=== PATIENT | male | born 1940 ===

== ENCOUNTER 2018-03-18 10:25 | Inpatient (IN) | payer MEDICARE, OTHER ==
--- NOTE | 2018-03-11 11:14 | HP ---
HISTORY AND PHYSICAL: DATE OF ADMISSION/SURGERY: 03/18/18 SURGEON: Diana Cardoza MD.* (DICTATED BY EMILY STEPHENS) PROCEDURE: Left total hip arthroplasty. CHIEF COMPLAINT: Left hip pain. HISTORY OF PRESENT ILLNESS: Mr. Mcgraw is a 78-year-old gentleman with complaints of left hip pain secondary to end-stage osteoarthritis. He has failed conservative treatment and elected to proceed with a left total hip arthroplasty. PAST MEDICAL HISTORY: Hypertension, diabetes, high cholesterol. PAST SURGICAL HISTORY: Cholecystectomy, right eye lens replacement, and a cyst removal. CURRENT MEDICATIONS: 1. Lantus. 2. Lisinopril 40 mg daily. 3. Simvastatin 80 mg daily. 4. Glucosamine. 5. Terazosin 5 mg daily. 6. Triamterene/hydrochlorothiazide 37.5/25 mg daily. 7. Baby aspirin daily. ALLERGIES: PENICILLIN. FAMILY HISTORY: Colon cancer, coronary artery disease, stroke and brain aneurysm. SOCIAL HISTORY: This is a 78-year-old gentleman who lives with his . He does not smoke or use drugs. Reports approximately 3 beers a day. REVIEW OF SYSTEMS: A complete 14-point review of systems was reviewed with the patient and was positive for diabetes. He denies history of DVT, PE, hepatitis , HIV, or anesthesia problems. PHYSICAL EXAMINATION GENERAL: He is well developed, well nourished in no acute distress. VITAL SIGNS: He stands 5 feet 11 inches tall, weighs 241 pounds. Blood pressure is 162/86, heart rate 68. HEENT: Normocephalic, atraumatic. NECK: Supple. No palpable lymph nodes. PULMONARY: Lungs are clear to auscultation bilaterally. CARDIO: Regular rate and rhythm. Strong S1, S2. ABDOMEN: Soft, nontender, nondistended. NEUROLOGICAL: He is alert and oriented x3. Cranial nerves II through XII are intact. MUSCULOSKELETAL: Left lower extremity, the skin is intact. There are no open wounds or abrasions. He walks with an antalgic type gait favoring his left hip. He has decreased internal and external rotation of the left hip. He has 2 + dorsalis pedis pulses, intact sensation and his lower extremity muscle group strengths are intact at 5/5. ASSESSMENT AND PLAN: Mr. Mcgraw is a 78-year-old gentleman with continued complaints of left hip pain secondary to end-stage osteoarthritis. He has failed conservative treatment and elected to proceed with a left total hip arthroplasty, which is scheduled for 03/18/[address] Cardoza discussed the risks and the benefits of the surgery at today's visit and all of his questions were answered. He will follow up with Dr. Cardoza 2 weeks after the surgery. EMILY STEPHENS [id number]/[facility] #: [id number] MTDD
[~2018-03-18 10:25] MED LIST: Buffered Lidocaine 0.9% SYRIN* 5 ML/SYR SYRINGE INTRADERM ONE; DiMENhydriNATE IV* 50 MG/ML VIAL IV PUSH PRN; Famotidine IV* 10 MG/ML 2 ML (20 mg) IV ONE; Gabapentin CAP(*) 300 MG PO ONE; Morphine INJ* 2 MG/ML 1 ML CARPUJECT IV PRN; Naloxone* 0.4 MG/ML 1 ML VIAL IV PRN; Ondansetron TAB* 4 MG PO ONE; PROCHLORPERAZINE INJ 5 MG/ML 2 ML VIAL IV PRN; Scopolamine 1.5 mg* PATCH TRANSDERM ONE; fentaNYL* 50 MCG/ML 2 ML VIAL (100 MCG VIAL) IV PRN
[2018-03-18] MEDS ORDERED: Gabapentin CAP(*) 100 MG ONE (10:43)
[2018-03-18] MEDS ORDERED: Ondansetron ODT TAB* 4 MG ONE (10:44)
[2018-03-18] MEDS ORDERED: Famotidine IV* 10 MG/ML 2 ML (20 mg) ONE (10:44)
[2018-03-18] MEDS ORDERED: Scopolamine 1.5 mg* PATCH ONE (10:44)
[2018-03-18] MEDS ORDERED: Gabapentin CAP(*) 400 MG PO ONE (10:44)
[2018-03-18] MEDS ORDERED: Clindamycin 900 MG IVPREMIX(* 900 MG/50 ML SDV IV ONE (10:45)
[2018-03-18] MEDS ORDERED: Buffered Lidocaine 0.9% SYRIN* 5 ML/SYR SYRINGE ONE (10:47)
[2018-03-18] MEDS ORDERED: Gabapentin CAP(*) 300 MG ONE (11:13)
[2018-03-18] MEDS ORDERED: KETAMINE HCL* 50 MG/ML 10 ML VIAL ONE (12:32)
[2018-03-18] MEDS ORDERED: Midazolam* 1 MG/ML 5 ML VIAL (5 MG) ONE (12:32)
[2018-03-18] MEDS ORDERED: fentaNYL* 50 MCG/ML 2 ML VIAL (100 MCG VIAL) ONE (12:32)
[2018-03-18] MEDS ORDERED: diPHENhydraMINE IV* 50 MG/ML 1 ml VIAL (BENADRYL) IV PRN (15:49)
[2018-03-18] MEDS ORDERED: oxyCODONE TAB* 5 MG TAB PO PRN (15:49)
[2018-03-18] MEDS ORDERED: Ondansetron INJ* 2 MG/ML VIAL IV PRN (15:49)
[2018-03-18] MEDS ORDERED: Cyclobenzaprine TAB* 10 MG PO PRN (15:49)
[2018-03-18] MEDS ORDERED: Ondansetron ODT TAB* 4 MG PO PRN (15:49)
[2018-03-18] MEDS ORDERED: Polyethylene Glycol 3350* 17 GM PACKET PO PRN (15:49)
[2018-03-18] MEDS ORDERED: Bisacodyl SUPP* 10 MG SUPP PR PRN (15:49)
[2018-03-18] MEDS ORDERED: Magnesium Hydroxide LIQ* 30 ML UDC PO PRN (15:49)
[2018-03-18] MEDS ORDERED: Acetaminophen TAB* 325 MG PO PRN (15:49)
[2018-03-18] MEDS ORDERED: Morphine VIAL* 4 MG/ML VIAL (1 ml vial) IV PRN (15:49)
[2018-03-18] MEDS ORDERED: Insulin GLARGINE(*) 1 UNITS UNIT SUBCUT SCH ×2 (16:00→21:00)
[2018-03-18] MEDS ORDERED: Insulin ASPART (NF) 1 UNIT SUBCUT SCH ×3 (16:00)
[2018-03-18] MEDS ORDERED: Phenylephrine INJ* 10 MG/ML 1 ML VIAL (10 MG) ONE (16:22)
[2018-03-18] MEDS ORDERED: Propofol* 10 MG/ML 20 ML BTL IV PUSH ONE (16:22)
[2018-03-18] MEDS ORDERED: ROPIVACAINE 5 MG/ML 30 ML BTL (0.5%) ONE (16:22)
[2018-03-18] MEDS ORDERED: EPHEDrine (Pressors)* 50 MG/ML VIAL ONE (16:22)
[2018-03-18] MEDS ORDERED: Glycopyrrolate IV* 0.2 MG/ML 1 ML VIAL ONE (16:22)
[2018-03-18] MEDS ORDERED: Bupivacaine 0.5% PF 10 ML VIAL INJ ONE (16:22)
--- NOTE | 2018-03-18 16:55 | RAD ---
Indication: Left hip replacement. Single view of the left hip taken in the operating room demonstrates acetabular cup and left femoral reamer in place. IMPRESSION: Intraoperative control films obtained for left hip replacement.
[2018-03-18] MEDS ORDERED: Warfarin TAB(*) 6 MG PO ONE ×2 (17:00→20:00)
[2018-03-18] MEDS ORDERED: Dextrose 50% Syringe 50 ML* 25 GM/50 ML SYRINGE IV PUSH PRN (17:40)
--- NOTE | 2018-03-18 17:58 | RAD ---
Indication: Left total hip replacement 2 views of left hip demonstrates bipolar left hip replacement in satisfactory position. Femoral component appears to be well seated. IMPRESSION: Left hip replacement appears in satisfactory position.
--- NOTE | 2018-03-18 17:59 | RAD ---
Indication: Left hip arthroplasty. Single view of the pelvis demonstrates left hip arthroplasty in satisfactory position. No fracture is identified. Degenerative changes of the sacroiliac joints are noted. IMPRESSION: Left total hip arthroplasty in satisfactory position.
[2018-03-18] MEDS ORDERED: oxyCODONE/Acetamin 5/325 MG* TAB ONE ×2 (18:22→18:41)
[2018-03-18] MEDS: oxyCODONE/Acetamin 5/325 MG* TAB PO PRN ×3 (18:26→22:41)
--- NOTE | 2018-03-18 19:06 | CONS ---
Amended report to enter date of consultation. CONSULTATION REPORT: DATE OF CONSULT: 03/18/2018. PRIMARY CARE PROVIDER: Zohaib Holden DO, at the [facility]. REQUESTING PHYSICIAN: Dr. Diana Cardoza. REASON FOR CONSULT: Medical management of comorbidities in the postop period. HISTORY OF PRESENT ILLNESS: Mr. Mcgraw is a 78-year-old male with a past medical history of type 2 diabetes with diabetic retinopathy, hypertension, obesity, degenerative joint disease, who presented for an elective left total hip replacement. The patient was optimized prior to surgery by his primary care provider, and he underwent left total hip arthroplasty under spinal anesthesia with estimated blood loss of [address] Cardoza on 03/18/18. The patient was evaluated at PACU and he is alert and awake with no complaints of pain at this time. He denies chest pain, palpitations, shortness of breath, nausea, vomiting or other complaints. PAST MEDICAL HISTORY: 1. Type 2 diabetes with history of diabetic retinopathy. 2. Hypertension. 3. Obesity with a BMI of 33. 4. Degenerative joint disease. PAST SURGICAL HISTORY: 1. Status post cholecystectomy. 2. Status post cataract surgery of the right eye only. MEDICATION LIST: 1. Aspirin 81 mg p.o. at bedtime. 2. Glucosamine/chondroitin 1 capsule p.o. b.i.d. 3. Ibuprofen 400 mg p.o. q.8 hours as needed for pain. 4. Lantus 30 units subcutaneously daily. 5. Insulin aspart 6 units subcutaneously at breakfast, 10 units lunch and dinner. 6. Lisinopril 40 mg p.o. q.a.m. 7. Simvastatin 80 mg p.o. 5 p.m. 8. Terazosin 5 mg p.o. at bedtime. 9. Triamterene/hydrochlorothiazide 37.5/25 mg p.o. q.a.m. ALLERGIES: With PENICILLIN, the patient has diarrhea. FAMILY HISTORY: Brother had CAD, CVA, colon cancer; other brother had the heart valve problem and a brain tumor. SOCIAL HISTORY: No history of tobacco or drug use. He drinks 3 beers a day. Surrogate decision maker is his , Kathleen Mcgraw, phone number [phone]. REVIEW OF SYSTEMS: A 14-point review systems was performed and all the pertinent negative and positive findings are in the HPI. PHYSICAL EXAMINATION: Vital Signs: Temperature 97.5, heart rate is 77, respiratory rate is 20, oxygen saturation is 96% on 4 liters nasal cannula, blood pressure is 139/70. General: The patient is an obese male, lying in bed , in no acute distress. HEENT: Pupils are anisocoric with right pupil irregularities secondary to prior surgery. Moist mucous membranes. CVS: Normal S1, S2. Regular rate and rhythm. Chest: Breath sounds present bilaterally with no added sounds. Abdomen is obese. Bowel sounds present. Neuro: He is alert and oriented x3. Able to move all 4 extremities. ASSESSMENT AND PLAN: Mr. Mcgraw is a 78-year-old male with a past medical history of obesity, diabetes, hypertension, who was admitted for an elective left total hip replacement. 1. Left total hip replacement. Management as per Ortho. 2. Type 2 diabetes. We are going to monitor his fingersticks a.c. and h.s. and we will continue his Lantus, but at a lower dose for now and he will be on a lispro sliding scale initially. If his oral intake is good, then I will put him back on his usual regimen, but I will try to avoid hypoglycemia for tonight as his glucose was only 115. 3. Hypertension. The patient's blood pressure is controlled at this time. We will continue his lisinopril, triamterene/hydrochlorothiazide and terazosin. 4. Hyperlipidemia. We will continue simvastatin. 5. DVT prophylaxis will be with Lovenox and warfarin as per Orthopedics recommendations. 6. Code status is full. The hospitalist service will continue to follow with you. TIME SPENT: Approximately 45 minutes was spent with the patient's interview, medical records review, physical examination to complete this consultation, more than half of this time was spent [id number] with the patient and coordination of care. [id number]/[facility] #: [id number] JOSÉ ANTONIO
[2018-03-18] MEDS: Atorvastatin* 40 MG TAB PO SCH (19:47)
[2018-03-18] MEDS ORDERED: Terazosin CAP* 5 MG PO SCH (21:00)
[2018-03-18] MEDS ORDERED: Insulin LISPRO* 1 UNITS UNIT SUBCUT SCH (21:00)
[2018-03-18] MEDS: Docusate CAP* 100 MG PO SCH (21:04)
[2018-03-18] MEDS: Magnesium Hydroxide LIQ* 30 ML UDC PO SCH (21:09)
[2018-03-18] MEDS: Clindamycin 600 MG IVPREMIX(* 600 MG/50 ML SDV IV SCH (22:42)
[2018-03-19] MEDS: oxyCODONE/Acetamin 5/325 MG* TAB PO PRN ×4 (04:17→19:19)
[2018-03-19 06:14] LABS: Hematocrit 34 % (42-52); Hemoglobin 11.5 g/dl (14.0-18.0); Mean Platelet Volume 8.1 um3 (7.4-10.4); Platelet Count 198 10^3/ul (150-450)
[2018-03-19] MEDS: Clindamycin 600 MG IVPREMIX(* 600 MG/50 ML SDV IV SCH ×2 (06:16→14:57)
[2018-03-19 06:22] LABS: INR 1.05 (0.77-1.02)
[2018-03-19 06:33] LABS: EGFR Non-African American 72.9 (>60)
[2018-03-19] MEDS ORDERED: Dextrose 50% Syringe 50 ML* 25 GM/50 ML SYRINGE IV PUSH PRN (07:26)
[2018-03-19] MEDS: Insulin LISPRO* 1 UNITS UNIT SUBCUT SCH ×7 (08:45→22:13)
[2018-03-19] MEDS: Docusate CAP* 100 MG PO SCH ×2 (08:47→19:19)
[2018-03-19] MEDS: Magnesium Hydroxide LIQ* 30 ML UDC PO SCH ×2 (08:47→19:19)
[2018-03-19] MEDS: Lisinopril TAB* 10 MG PO SCH (08:48)
[2018-03-19] MEDS: Triamterene/HCTZ 37.5-25 MG* CAP PO SCH (08:49)
[2018-03-19] MEDS: Terazosin CAP* 5 MG PO SCH (08:51)
--- NOTE | 2018-03-19 09:28 | OP ---
OPERATIVE REPORT: DATE OF OPERATION: 03/18/18 DATE OF : 38 SURGEON: Diana Cardoza MD IT SUPPORT ENGINEER: EMILY Barboza Kamidestini did help throughout the procedure with preparation of the leg, wound retraction, manipulat ion of the hip and wound closure. ANESTHESIOLOGIST: Dr. Sandra. ANESTHESIA: Spinal. PRE-OP DIAGNOSIS: Severe end-stage degenerative osteoarthritis of the left hip joint. POST-OP DIAGNOSIS: Severe end-stage degenerative osteoarthritis of the left hip joint. OPERATIVE PROCEDURE: Left total hip arthroplasty. COMPLICATIONS: None. ESTIMATED BLOOD LOSS: 300 cc. SPECIMEN: Femoral head and acetabular reaming sent to pathology. HARDWARE: This is uncemented [employer] total hip hardware. For the cup, a 56E Tritanium cluster hole shell, a 25 mm screw was used. For the polyethylene, a Trident X3 0-degree polyethylene insert 40E. For the stem, an Accolade TMZF size 4.5 with a 132-degree neck angle. For the head, a Biolox delta ceramic V40 femoral head size 40 with a -2.5 adaptor sleeve. BRIEF HISTORY/INDICATIONS: Mr. Mcgraw is a 78-year-old gentleman with severe left hip pain over ma ny years. The pain became excruciating and he had difficulty ambulating. He failed conservative maureen atment with antiinflammatories, pain medication, and ambulatory assistive devices. He elected to und ergo a left total hip arthroplasty due to continued pain and decreased quality of life. Radiographs showed [id number] arthritis. Informed consent was obtained from the patient. He understood the ri sks of surgery included but were not limited to bleeding, infection, damage to nearby structures, con tinued pain, need for further surgery, intraoperative fracture, nerve palsy, hardware failure or loos ening, dislocation, leg length discrepancies, stroke, heart attack, blood clot and . He wished to proceed. INTRAOPERATIVE FINDINGS: Intraoperatively, the patient was noted to have end-stage disease with comp lete loss of cartilage along the acetabulum and femoral head. DESCRIPTION OF PROCEDURE: Mr. Mcgraw was identified in the preanesthesia unit. His left lower extr emity was marked as the correct operative site. Informed consent was signed and placed in the chart. The patient was taken to the operating room and placed under spinal anesthesia. A De Oliveira catheter w as placed. He was placed in the right lateral decubitus position on the peg board. Left lower extre mity was prepped and draped in the usual sterile fashion. Preop time-out was made to correctly ident eleazar the patient side and site. Appropriate perioperative antibiotics were given within 1 hour of inc ision. A standard posterior hip incision was made with a 10 blade and carried down to the lateral fascia lay er. Lateral fascia layer was incised in line with a skin incision. The Charnley retractor was place d and the posterior aspect of the hip joint was well visualized. Piriformis and conjoint tendons wer e identified. These were elevated off the posterolateral femur using electrocautery. These were tag ged with #5 Ethibond. Next, a posterolateral capsular flap was made with electrocautery and tagged with #5 Ethibond. The h ip was carefully dislocated. Lesser troch to the center of the femoral head measured 58 mm. Oscilla ting saw was used to make the appropriate femoral neck cut. Femoral head was carefully removed. The femur was retracted anteriorly. After appropriate placement of the retractor, the acetabulum was we ll visualized. Long-handled knife was used to sharply remove any remaining labrum from the acetabula r rim. The acetabulum was sequentially reamed up to a size 55. A size 55 trial was impacted and had good fit. A Tritanium cluster hole shell 56E was chosen as the final implant. A good bleeding subch ondral bone bed was obtained. The final implant was impacted into the acetabulum without difficulty. There was excellent stability as well as appropriate anteversion and abduction angle. A single 25 m m screw was placed in the superior posterior quadrant for extra stability. Trident X3 0-degree liner was chosen 40E. This was impacted into the acetabulum without difficulty. Stability of the insert was then rechecked and noted to be stable. Attention was next turned to preparation of the proximal femur. After appropriate placement of retra ctor, the proximal femur was well visualized. Canal finder was used to enter the proximal femur. Th e femur was sequentially broached up to a size 4.5. The 4.5 broach had good fit and appropriate ante version. A 132 neck trial was chosen as well as a 40 +0 head trial. Lesser troch to center of the f emoral head measured 60 mm. The hip was reduced and taken through range of motion. The hip was stab le in all positions. There was good soft tissue tension and appropriate leg lengths. The hip was di slocated. All trials were removed. Final implant chosen was an Accolade TMZF size 4.5 with a 132 degree neck angle. This was impacted in to the femoral canal without difficulty. There was excellent stability and good anteversion. The fi nal implant did sit up about 3 mm higher than the broach. Therefore, a ceramic Biolox delta femoral head size 40 with a - 2.5 adaptor sleeve was chosen as the final implant. This was impacted on to th e femoral neck. Lesser troch to center of femoral head measured 58 mm. The hip was reduced and take n through range of motion. The hip was stable in all positions. There was good soft tissue tension a nd appropriate leg lengths. The hip was copiously irrigated with sterile saline. Previously tagged capsule and tendons were reapproximated to the posterolateral femur through 2 trochanteric drill hole s. The lateral fascia layer was closed using an interrupted #1 Vicryl. The rest of the incision was closed in a layered fashion using 0 and 2-0 Vicryl. Skin was closed using running 3-0 Monocryl and D ermabond. Sterile Adaptic, 4x4s and paper tape were used to cover the incision. The patient's anest hesia was reversed without difficulty. He was taken to the PACU in stable condition. Intended weigh tbearing will be weightbearing as tolerated. Intended DVT prophylaxis will be Coumadin with a Loveno x bridge. [id number]/[facility] #: [id number]
--- NOTE | 2018-03-19 09:56 | PN ---
Progress Note - Progress Note Date of Service: 03/19/18 SOAP: Subjective: Mr. Mcgraw is a 78 y/o male who is POD #1 S/PP L NURY with Dr. Cardoza on . VSS. No concerns today. Ca on low end, asymptomatic. No CP, SOB, calf pain, N/V. Objective: Vital Signs Temp 99.7 F 03/19/18 07:45 Pulse 84 03/19/18 07:45 Resp 18 03/19/18 08:58 BP 142/59 03/19/18 07:45 Pulse Ox 92 03/19/18 08:00 Intake & Output 03/18/18 03/19/18 03/19/18 18:59 06:59 18:59 Intake Total 2505 2760 600 Output Total 500 1275 250 Balance 2004 1485 350 Weight 239 lb Intake: IV Fluids 2400 985 LR 2400 985 IVPB 55 ABX - CLINDAMYCIN 55 Oral 105 1720 600 Output: Urine 250 De Oliveira 500 1275 Laboratory Results - last 24 hr 03/18/18 03/18/18 03/18/18 10:57 15:23 17:54 Hgb Hct Plt Count MPV INR (Anticoag Therapy) Sodium Potassium Chloride Carbon Dioxide Anion Gap BUN Creatinine Est GFR ( Amer) Est GFR (Non-Af Amer) BUN/Creatinine Ratio Glucose POC Glucose (mg/dL) 160 H 115 H 104 H Calcium 03/18/18 03/19/18 03/19/18 20:55 05:48 05:48 Hgb 11.5 L Hct 34 L Plt Count 198 MPV 8.1 INR (Anticoag Therapy) 1.05 H Sodium Potassium Chloride Carbon Dioxide Anion Gap BUN Creatinine Est GFR ( Amer) Est GFR (Non-Af Amer) BUN/Creatinine Ratio Glucose POC Glucose (mg/dL) 183 H Calcium 03/19/18 03/19/18 05:48 07:20 Hgb Hct Plt Count MPV INR (Anticoag Therapy) Sodium 135 Potassium 4.0 Chloride 97 L Carbon Dioxide 32 Anion Gap 6 BUN 14 Creatinine 0.99 Est GFR ( Amer) 88.2 Est GFR (Non-Af Amer) 72.9 BUN/Creatinine Ratio 14.1 Glucose 221 H POC Glucose (mg/dL) 240 H Calcium 8.3 L General: WN, WD, sitting in chair LLE: Dressing C/D/I, no erythema, warmth proximal or distal to dressing. Minimal tenderness to palpation at dressing. Thigh and calf soft, nontender. +DF /PF, 2+ DP pulse. SITLT. Assessment: POD #1 S/P L NURY with Dr. Cardoza on 03/18/18. Plan: - WBAT - Continue PT/OT - Coumadin 8 mg at 5 pm , INR 1.05 after 6 mg yesterday - Appreciate medicine consult for comorbid problem management
--- NOTE | 2018-03-19 10:38 | PN ---
Subjective Date of Service: 03/19/18 Interval History: HOSPITALIST PROGRESS NOTE Patient seen and examined at bedside. Care reviewed and d/w Pradeep Rosen RN. He is in good spirits today, very talkative, happy his De Oliveira catheter is out. Family History: Unchanged from Admission Social History: Unchanged from Admission Past Medical History: Unchanged from Admission Objective Active Medications: Acetaminophen (Tylenol Tab*) 650 mg PO Q4H PRN PRN Reason: PAIN OR TEMPERATURE Atorvastatin Calcium (Lipitor*) 40 mg PO 1700 [facility] Last Admin: 03/18/18 19:47 Dose: 40 mg Bisacodyl (Dulcolax Supp*) 10 mg OH DAILY PRN PRN Reason: constipation Cyclobenzaprine HCl (Flexeril Tab*) 10 mg PO TID PRN PRN Reason: SPASMS Dextrose (D50w Syringe 50 Ml*) 12.5 gm IV PUSH .FOR FS < 60 - SS PRN PRN Reason: FS < 60 Dextrose (D50w Syringe 50 Ml*) 12.5 gm IV PUSH .FOR FS < 60 - SS PRN PRN Reason: FS < 60 Diphenhydramine HCl (Benadryl Iv*) 12.5 mg IV Q6H PRN PRN Reason: PRURITIS Docusate Sodium (Colace Cap*) 100 mg PO BID [facility] Last Admin: 03/19/18 08:47 Dose: 100 mg Enoxaparin Sodium (Lovenox(*)) 40 mg SUBCUT Q24H [facility] Clindamycin HCl/Dextrose (Cleocin 600 Mg Ivpremix(*) Sdv) 600 mg in 50 mls @ 100 mls/hr IV Q8H [facility] Stop: 03/19/18 14:59 Last Admin: 03/19/18 06:16 Dose: 100 mls/hr Lactated Ringer's (Lactated Ringers 1000 Ml Bag*) 1,000 mls @ 100 mls/hr IV PER RATE [facility] Last Admin: 03/19/18 05:27 Dose: 100 mls/hr Insulin Glargine (Lantus(*)) 30 units SUBCUT Q24H [facility] Insulin Human Lispro (Humalog*) 0 units SUBCUT ACHS [facility]; Protocol Last Admin: 03/19/18 08:45 Dose: 6 units Insulin Human Lispro (Humalog*) 0 units SUBCUT AC [facility]; Protocol Last Admin: 03/19/18 08:45 Dose: 1 unit Lactulose (Lactulose*) 30 ml PO Q6H PRN PRN Reason: constipation Lisinopril (Prinivil Tab*) 40 mg PO QAM [facility] Last Admin: 03/19/18 08:48 Dose: 40 mg Magnesium Hydroxide (Milk Of Magnesia Liq*) 30 ml PO BID [facility] Last Admin: 03/19/18 08:47 Dose: 30 ml Magnesium Hydroxide (Milk Of Magnesia Liq*) 30 ml PO Q6H PRN PRN Reason: constipation Morphine Sulfate (Morphine Vial*) 2 mg IV Q2H PRN PRN Reason: PAIN Ondansetron HCl (Zofran Inj*) 4 mg IV Q6H PRN PRN Reason: nausea Ondansetron HCl (Zofran Odt Tab*) 4 mg PO Q6H PRN PRN Reason: NAUSEA Oxycodone HCl (Roxycodone Tab*) 10 mg PO Q4H PRN PRN Reason: SEVERE PAIN Oxycodone/Acetaminophen (Percocet 5/325 Tab*) 2 tab PO Q4H PRN PRN Reason: PAIN Last Admin: 03/19/18 08:58 Dose: 2 tab Oxycodone/Acetaminophen (Percocet 5/325 Tab*) 1 tab PO Q4H PRN PRN Reason: PAIN Pharmacy Profile Note (Scopolamine Patch Remove*) 1 note PATCH OFF ONCE ONE Stop: 03/21/18 06:01 Pharmacy Profile Note (Coumadin Daily Reminder*) 0 note FOLLOW UP 1700 [facility] Polyethylene Glycol/Electrolytes (Miralax*) 17 gm PO DAILY PRN PRN Reason: Constipation Terazosin HCl (Hytrin Cap*) 5 mg PO DAILY [facility] Last Admin: 03/19/18 08:51 Dose: 5 mg Triamterene/HCTZ (Dyazide Cap*) 1 cap PO QAM [facility] Last Admin: 03/19/18 08:49 Dose: 1 cap Vital Signs - 8 hr 03/19/18 03/19/18 03/19/18 03:09 04:17 04:43 Temperature 98.1 F Pulse Rate 81 Respiratory 16 18 Rate Blood Pressure 141/59 (mmHg) O2 Sat by Pulse 100 100 Oximetry 03/19/18 03/19/18 03/19/18 07:33 07:45 08:00 Temperature 99.7 F Pulse Rate 84 Respiratory 18 17 18 Rate Blood Pressure 142/59 (mmHg) O2 Sat by Pulse 92 92 Oximetry Oxygen Devices in Use Now: None Appearance: Obese male sitting up in bed in NAD. Eyes: No Scleral Icterus Ears/Nose/Mouth/Throat: Mucous Membranes Moist Neck: Trachea Midline Extremities: No Edema Neurological: Alert and Oriented x 3, NL Muscle Strength and Tone Result Diagrams: 03/19/18 05:48 03/19/18 05:48 Assess/Plan/Problems-Billing Assessment: Mr. Mcgraw is a 78yo M with PMH of obesity, type 2 DM with diabetic retinopathy, HTN, DJD, admitted for elective left total hip arthroplasty. - Patient Problems (1) History of arthroplasty of left hip Comment: - Management as per Ortho. (2) Diabetes Comment: - Increase Lantus and continue Lispro SS. (3) HTN (hypertension) Comment: - Continue Lisinopril, Terazosin, and Triamterene/HCTZ. (4) DVT prophylaxis Comment: - Lovenox/Warfarin as per Ortho. (5) Full code status
[2018-03-19] MEDS: Enoxaparin(*) 40 MG/0.4 ML SYR SUBCUT SCH (12:13)
[2018-03-19] MEDS ORDERED: Warfarin TAB(*) 4 MG PO ONE (17:00)
[2018-03-19] MEDS: Atorvastatin* 40 MG TAB PO SCH (18:20)
[2018-03-19] MEDS: Insulin GLARGINE(*) 1 UNITS UNIT SUBCUT SCH (18:21)
[2018-03-20] MEDS: oxyCODONE/Acetamin 5/325 MG* TAB PO PRN (05:31)
[2018-03-20 05:51] LABS: Hematocrit 33 % (42-52); Hemoglobin 10.9 g/dl (14.0-18.0); Mean Platelet Volume 8.2 um3 (7.4-10.4); Platelet Count 199 10^3/ul (150-450)
[2018-03-20 06:00] LABS: INR 1.17 (0.77-1.02)
[2018-03-20] MEDS: Insulin LISPRO* 1 UNITS UNIT SUBCUT SCH ×7 (08:28→21:10)
[2018-03-20] MEDS: Docusate CAP* 100 MG PO SCH ×2 (08:29→21:10)
[2018-03-20] MEDS: Lisinopril TAB* 10 MG PO SCH (09:18)
[2018-03-20] MEDS: Magnesium Hydroxide LIQ* 30 ML UDC PO SCH ×2 (09:19→21:10)
--- NOTE | 2018-03-20 11:39 | DS ---
DISCHARGE SUMMARY: DATE OF ADMISSION: 03/18/18 DATE OF DISCHARGE: 03/21/18 ADMITTING PHYSICIAN: Dr. Diana Cardoza* (dictated by EMILY Vaca). ADMIT DIAGNOSES: 1. Left hip osteoarthritis. 2. Hypertension. 3. Diabetes. 4. High cholesterol. DISCHARGE DIAGNOSES: 1. Status post left total hip arthroplasty. 2. Hypertension. 3. Diabetes. 4. High cholesterol. PROCEDURE: Left total hip arthroplasty. CONSULTATIONS: Physical Therapy, Occupational Therapy, and Medicine. BRIEF HISTORY: Mr. Mcgraw is a 78-year-old male with severe end-stage left hip osteoarthritis. He has failed conservative treatment and elected to undergo a left total hip arthroplasty with Dr. Cardoza on 03/18/18. HOSPITAL COURSE: Mr. Mcgraw was admitted to [facility] on 03/18/18 and underwent an uncomplicated left total hip arthroplasty. Postoperatively, he recovered in the short stay unit. His De Oliveira catheter was removed and he was able to urinate on his own on postop day 1. He was advanced to a carb-controlled diet without problems. Pain was well controlled with p.o. Percocet and he was restarted on home medications. Labs and vital signs remained stable. He advanced appropriately with physical therapy and occupational therapy. DVT prophylaxis was managed with Lovenox and Coumadin. On postoperative day 2, he developed new onset atrial fibrillation. His rate was controlled with lopressor and the hospitalist group handled his care. He was monitored on telemetry overnight. By postoperative day 3 he was stable with a heart rate in the 80's and asymptomatic. He was cleared for discharge by the hospitalist team and physical therapy. The plan for DVT prophylaxis was switched to eliquis secondary to the new onset atrial fibrillation. PHYSICAL EXAMINATION: General: Well developed, well nourished, no acute distress. Alert and oriented x3. Left hip dressing clean, dry, and intact. Surgical incision benign. Distal gross motor and neurovascular function intact. Calf soft and nontender. Vital Signs: Temperature 99.1 degrees Fahrenheit, pulse rate 83, respiratory rate 14, O2 sat 100% on room air, blood pressure 101/48. LABORATORY DATA ON DATE OF DISCHARGE: Hemoglobin 10.9, hematocrit 3.33. INR 1.17. RADIOGRAPHS: Postoperative radiograph of the left hip demonstrate a left total hip arthroplasty with satisfactory prosthesis placement and no acute bony abnormalities. DISCHARGE MEDICATIONS: 1. Lantus. 2. Lisinopril 40 mg daily. 3. Simvastatin 80 mg daily. 4. Glucosamine. 5. Terazosin 5 mg daily. 6. Triamterene/hydrochlorothiazide 37.5/25 mg daily. 7. Percocet 5/325 one to two tabs q.4 to 6 hours p.r.n. pain. 8. Eliquis per hospitalist 9. Colace 100 mg b.i.d. p.r.n. constipation. CONDITION ON DISCHARGE: Stable. DISCHARGE INSTRUCTIONS: Mr. Mcgraw is a 78-year-old male postoperative day # 2 status post left total hip arthroplasty, which was uncomplicated. He is orthopedically and medically stable for discharge home with services. Lab and vital signs have been stable. He will restart his home medications. He will remain weightbearing as tolerated on the left lower extremity. He will eliquis for DVT prophylaxis and the hospitalist group will dose this. He will continue to follow posterior hip precautions. He will use Percocet for pain management and Colace as needed for constipation. He will follow up with Dr. Cardoza in approximately 2 weeks. He was instructed to call the office immediately if he develops fever, increasing pain, increasing redness, or has questions. He will go to the emergency room should he develop chest pain or shortness of breath. EMILY VACA [id number]/[facility] #: [id number] JOSÉ ANTONIO
[2018-03-20] MEDS: Triamterene/HCTZ 37.5-25 MG* CAP PO SCH (11:44)
[2018-03-20] MEDS: Terazosin CAP* 5 MG PO SCH (11:44)
[2018-03-20 12:02] LABS: ABS Basophils 0 10^3/ul (0-0.2); ABS Eosinophils 0 10^3/ul (0-0.6); ABS Lymphocytes 1.3 10^3/ul (1.0-4.8); ABS Monocytes 1.1 10^3/ul (0-0.8); ABS Nucleated RBC 0 10^3/ul; Eosinophil % 0.3 % (0-6); Hematocrit 31 % (42-52); Hemoglobin 10.4 g/dl (14.0-18.0); Lymphocyte % 9.5 % (25-47); Mean Corpuscular HGB Conc 34 g/dl (31-36); Mean Corpuscular Hemoglobin 29 pg (27-31); Mean Corpuscular Volume 85 fL (80-94); Nucleated Red Blood Cells % 0; Platelet Count 177 10^3/ul (150-450); Red Blood Count 3.62 10^6/ul (4.00-5.40); Red Cell Distribution Width 14 % (10.5-15); White Blood Count 13.4 10^3/ul (3.5-10.8)
[2018-03-20 12:17] LABS: EGFR Non-African American 43.8 (>60)
[2018-03-20] MEDS: Enoxaparin(*) 40 MG/0.4 ML SYR SUBCUT SCH (12:27)
[2018-03-20] MEDS ORDERED: Metoprolol Tartrate IV* 1 MG/ML 5 ML VIAL IV PRN (12:54)
[2018-03-20] MEDS: Metoprolol Succinate XL TAB* 25 MG PO SCH (13:47)
[2018-03-20] MEDS ORDERED: Al Hydrox/Mg Hydrox/Simet LIQ* 30 ML UDC PO PRN (13:53)
--- NOTE | 2018-03-20 14:52 | PN ---
Subjective Date of Service: 03/20/18 Interval History: HOSPITALIST PROGRESS NOTE Patient seen and examined at bedside. Care reviewed and d/w Pradeep Rosen RN. He had borderline low BPs last night, but felt well this AM and was looking forward to going home today. Denies chest pain, dyspnea, palpitations, but was found to be in Afib. Family History: Unchanged from Admission Social History: Unchanged from Admission Past Medical History: Unchanged from Admission Objective Active Medications: Acetaminophen (Tylenol Tab*) 650 mg PO Q4H PRN PRN Reason: PAIN OR TEMPERATURE Al Hydrox/Mg Hydrox/Simethicone (Maalox Plus*) 30 ml PO Q4H PRN PRN Reason: INDIGESTION Atorvastatin Calcium (Lipitor*) 40 mg PO 1700 [facility] Last Admin: 03/19/18 18:20 Dose: 40 mg Bisacodyl (Dulcolax Supp*) 10 mg NC DAILY PRN PRN Reason: constipation Cyclobenzaprine HCl (Flexeril Tab*) 10 mg PO TID PRN PRN Reason: SPASMS Dextrose (D50w Syringe 50 Ml*) 12.5 gm IV PUSH .FOR FS < 60 - SS PRN PRN Reason: FS < 60 Dextrose (D50w Syringe 50 Ml*) 12.5 gm IV PUSH .FOR FS < 60 - SS PRN PRN Reason: FS < 60 Diphenhydramine HCl (Benadryl Iv*) 12.5 mg IV Q6H PRN PRN Reason: PRURITIS Docusate Sodium (Colace Cap*) 100 mg PO BID [facility] Last Admin: 03/20/18 08:29 Dose: 100 mg Enoxaparin Sodium (Lovenox(*)) 40 mg SUBCUT Q24H [facility] Last Admin: 03/20/18 12:27 Dose: 40 mg Lactated Ringer's (Lactated Ringers 1000 Ml Bag*) 1,000 mls @ 75 mls/hr IV PER RATE [facility] Insulin Glargine (Lantus(*)) 30 units SUBCUT Q24H [facility] Last Admin: 03/19/18 18:21 Dose: 30 units Insulin Human Lispro (Humalog*) 0 units SUBCUT ACHS [facility]; Protocol Last Admin: 03/20/18 12:26 Dose: 12 units Insulin Human Lispro (Humalog*) 0 units SUBCUT AC [facility]; Protocol Last Admin: 03/20/18 12:26 Dose: 3 unit Lactulose (Lactulose*) 30 ml PO Q6H PRN PRN Reason: constipation Lisinopril (Prinivil Tab*) 20 mg PO QAM [facility] Magnesium Hydroxide (Milk Of Magnesia Liq*) 30 ml PO BID [facility] Last Admin: 03/20/18 09:19 Dose: Not Given Magnesium Hydroxide (Milk Of Magnesia Liq*) 30 ml PO Q6H PRN PRN Reason: constipation Metoprolol Succinate (Toprol Xl Tab*) 25 mg PO DAILY [facility] Last Admin: 03/20/18 13:47 Dose: 25 mg Metoprolol Tartrate (Lopressor Iv*) 5 mg IV Q6H PRN PRN Reason: HR>120 Morphine Sulfate (Morphine Vial*) 2 mg IV Q2H PRN PRN Reason: PAIN Ondansetron HCl (Zofran Inj*) 4 mg IV Q6H PRN PRN Reason: nausea Ondansetron HCl (Zofran Odt Tab*) 4 mg PO Q6H PRN PRN Reason: NAUSEA Oxycodone HCl (Roxycodone Tab*) 10 mg PO Q4H PRN PRN Reason: SEVERE PAIN Oxycodone/Acetaminophen (Percocet 5/325 Tab*) 2 tab PO Q4H PRN PRN Reason: PAIN Last Admin: 03/19/18 13:06 Dose: 2 tab Oxycodone/Acetaminophen (Percocet 5/325 Tab*) 1 tab PO Q4H PRN PRN Reason: PAIN Last Admin: 03/20/18 05:31 Dose: 1 tab Pharmacy Profile Note (Scopolamine Patch Remove*) 1 note PATCH OFF ONCE ONE Stop: 03/21/18 06:01 Pharmacy Profile Note (Coumadin Daily Reminder*) 0 note FOLLOW UP 1700 [facility] Last Admin: 03/19/18 18:20 Dose: 1 note Polyethylene Glycol/Electrolytes (Miralax*) 17 gm PO DAILY PRN PRN Reason: Constipation Terazosin HCl (Hytrin Cap*) 5 mg PO DAILY [facility] Last Admin: 03/20/18 11:44 Dose: Not Given Warfarin Sodium (Coumadin Tab(*)) 8 mg PO ONCE@1700 [facility]; Protocol Stop: 03/20/18 17:01 Vital Signs - 8 hr 0703/20/18 03/20/18 07:16 08:00 08:20 Temperature 99.1 F Pulse Rate 83 Respiratory 14 20 16 Rate Blood Pressure 101/48 (mmHg) O2 Sat by Pulse 100 100 Oximetry 03/20/18 03/20/18 03/20/18 09:05 11:09 11:14 Temperature 98.4 F Pulse Rate 86 33 77 Respiratory 16 Rate Blood Pressure 133/42 121/49 (mmHg) O2 Sat by Pulse 95 Oximetry 03/20/18 03/20/18 03/20/18 11:21 13:44 14:11 Temperature 98.4 F 99.1 F Pulse Rate 120 125 Respiratory 16 20 20 Rate Blood Pressure 131/45 122/54 (mmHg) O2 Sat by Pulse 95 97 Oximetry Oxygen Devices in Use Now: None Appearance: Elderly gentleman sitting up in a recliner in NAD. Eyes: No Scleral Icterus Ears/Nose/Mouth/Throat: Mucous Membranes Moist Neck: Trachea Midline Respiratory: Symmetrical Chest Expansion and Respiratory Effort, Clear to Auscultation Cardiovascular: - - Normal S1 and S2, irregularly irregular Abdominal: NL Sounds; No Tenderness; No Distention - obese Neurological: Alert and Oriented x 3 Result Diagrams: 03/20/18 11:53 03/20/18 11:53 Assess/Plan/Problems-Billing Assessment: Mr. Mcgraw is a 78yo M with PMH of obesity, type 2 DM with diabetic retinopathy, HTN, DJD, admitted for elective left total hip arthroplasty. - Patient Problems (1) Afib Comment: - New onset. Was in NSR on pre op EKG. - Transfer to Telemetry. - Check BMP, Mg, TSH, echocardiogram. - Start Metoprolol for rate control. - Likely secondary to sen op stress. - [id number] is 4 (age, HTN, DM) predicting a risk of stroke of 4.8% year - risks, benefits, and alternatives d/w patient and - he's agreeable with anticoagulation (not only DVT prophylaxis as he was doing before, but full dose anticoagulation.) - D/w Ortho - increase Lovenox 110mg BID and continue Warfarin. (2) History of arthroplasty of left hip Comment: - Management as per Ortho. (3) DEBBY (acute kidney injury) Comment: - Likely pre-renal in the setting of surgical blood loss - start gentle IVF and monitor renal function. (4) Acute blood loss anemia Comment: - Secondary to surgical blood loss - EBL 300ml. (5) Diabetes Comment: - Continue Lantus and Lispro SS. (6) HTN (hypertension) Comment: - Decrease Lisinopril, continue Terazosin, and d/c Triamterene/HCTZ. (7) DVT prophylaxis Comment: - Lovenox/Warfarin. (8) Full code status
--- NOTE | 2018-03-20 16:45 | ECHO ---
Patient: NADEGE MCCARTNEY [facility] Rec#: [id number] : 1940 Date: 03/20/2018 Age: 78y Height: 180.3 cm / 71.0 in Weight: 108.4 kg / 238.9 lbs Sex: M BSA: 2.3 Room#: 432 Admit Date#: 03/18/2018 Type: Inpatient Referring: Isha Bergman MD Reading: Bora Robison MD Psychology Clinician: Apolonia Arellano RN RDCS Transthoracic Echocardiogram Indication: New onset A. fib BP: 131/45 HR: 104 Rhythm: A-Fib Findings History: HTN, HLD, DM, obesity, S/P left total hip arthroplasty on 03/18/2018. Technical Comments: The study quality is fair. The study is technically limited due to patient body habitus. Left Ventricle: The left ventricular chamber size is decreased. Mild to moderate concentric left ventricular hypertrophy is observed. Global left ventricular wall motion and contractility are within normal limits. There is normal left ventricular systolic function. The estimated ejection fraction is 60-65%. The assessment of diastolic function is non-diagnostic. Left Atrium: The left atrial chamber size is normal. Right Ventricle: The right ventricular cavity size is normal. The right ventricular global systolic function is normal. Right Atrium: The right atrial cavity size is normal. Aortic Valve: The aortic valve is trileaflet. The aortic valve leaflets are mildly thickened. There is aortic annular calcification. There is no evidence of aortic regurgitation. There is no evidence of aortic stenosis. Mitral Valve: The mitral valve leaflets are mildly thickened. There is a trace of mitral regurgitation. There is no evidence of mitral stenosis. Tricuspid Valve: The tricuspid valve leaflets are normal. There is trace tricuspid regurgitation. Unable to estimate the right ventricular systolic pressure. There is no tricuspid stenosis. Pulmonic Valve: The pulmonic valve structure is not well visualized. There is no evidence of pulmonic regurgitation. There is no pulmonic stenosis. Pericardium: There is no significant pericardial effusion. A pericardial fat pad is visualized. Aorta: There is no dilatation of the ascending aorta. The aortic arch is not well visualized. There is mild dilatation of the aortic root. Pulmonary Artery: The main pulmonary artery is not well visualized. Venous: The venous system is not well visualized. The inferior vena cava is not visualized. Conclusions The study is technically limited due to patient body habitus. Mild to moderate concentric left ventricular hypertrophy is observed. There is normal left ventricular systolic function. The estimated ejection fraction is 60-65%. No signficant valvulr disease: There is a trace of mitral regurgitation. There is trace tricuspid regurgitation. The left atrial chamber size is normal. There is mild dilatation of the aortic root. The patient is noted to be in an irregular rhythm. No reports of prior studies are offered for comparison. Measurements Name Value Normal Range RVDdMajor (2D) 3.6 cm (2.2 - 4.4) RAd ISD 4CH 4.7 cm (3.4 - 4.9) RA (A4C)W 2.9 cm (2.9 - 4.6) IVSd (2D) 1.4 cm (0.6 - 1) LVPWd (2D) 1.2 cm (0.6 - 1) LVIDd (2D) 3.1 cm (3.6 - 5.4) LVIDs (2D) 2.1 cm - LV FS (2D) 32 % (25 - 45) Aortic Annulus 2.2 cm (1.4 - 2.6) Ao root diameter (2D) 3.7 cm (2.1 - 3.5) Ascending Ao 3.2 cm (2.1 - 3.4) LA dimension (AP) 2D 3.8 cm (2.3 - 3.8) LAd ISD 4CH 4.7 cm (2.9 - 5.3) LA ISD 4CH W 3.5 cm (2.5 - 4.5) Name Value Normal Range LA ESV SP 4CH (A/L) 29 ml - LA ESV SP 2CH (A/L) 38 ml - LA ESV BP (A/L) 36 ml - LA ESV BP (A/L) index 16 ml/m2 - LA ESV SP 4CH (MOD) 27 ml - LA ESV SP 2CH (MOD) 38 ml - Name Value Normal Range MV E-wave Vmax 1.2 m/sec - MV deceleration time 123 msec - LV septal e' Vmax 0.13 m/sec - LV lateral e' Vmax 0.13 m/sec - LV E:e' septal ratio 9.2 ratio - LV E:e' lateral ratio 9.2 ratio - Name Value Normal Range AV Vmax 1.3 m/sec - AV VTI 21.2 cm - AV peak gradient 7.3 mmHg - AV mean gradient 4.4 mmHg - LVOT Vmax 0.93 m/sec - LVOT VTI 15.7 cm - LVOT peak gradient 3.5 mmHg - LVOT mean gradient 2 mmHg - Name Value Normal Range PV Vmax 0.66 m/sec -
[2018-03-20] MEDS ORDERED: Warfarin TAB(*) 4 MG PO ONE (17:00)
[2018-03-20] MEDS: Atorvastatin* 40 MG TAB PO SCH (17:26)
[2018-03-20] MEDS: Insulin GLARGINE(*) 1 UNITS UNIT SUBCUT SCH (17:28)
[2018-03-20] MEDS: Enoxaparin(*) 150 MG/ML 1 ML SYRINGE SUBCUT SCH (21:10)
[2018-03-21] MEDS: oxyCODONE/Acetamin 5/325 MG* TAB PO PRN (01:43)
[2018-03-21] MEDS ORDERED: Scopolamine PATCH Remove* 1 NOTE MISC PATCH OFF ONE (06:00)
[2018-03-21 06:36] LABS: Hematocrit 31 % (42-52); Hemoglobin 10.7 g/dl (14.0-18.0); Mean Platelet Volume 8.4 um3 (7.4-10.4); Platelet Count 219 10^3/ul (150-450)
[2018-03-21 06:41] LABS: INR 1.1 (0.77-1.02)
[2018-03-21] MEDS ORDERED: Lisinopril TAB* 10 MG PO SCH (09:00)
[2018-03-21] MEDS: Insulin LISPRO* 1 UNITS UNIT SUBCUT SCH ×4 (09:13→12:45)
[2018-03-21] MEDS: Docusate CAP* 100 MG PO SCH (09:14)
[2018-03-21] MEDS: Metoprolol Succinate XL TAB* 25 MG PO SCH (09:14)
[2018-03-21] MEDS: Enoxaparin(*) 150 MG/ML 1 ML SYRINGE SUBCUT SCH (09:15)
[2018-03-21] MEDS: Magnesium Hydroxide LIQ* 30 ML UDC PO SCH ×2 (09:15→09:18)
--- NOTE | 2018-03-21 09:25 | PN ---
Progress Note - Progress Note Date of Service: 03/21/18 SOAP: Subjective: Mr. Mcgraw is a 78 y/o male who is POD #3 S/PP L NURY with Dr. Cardoza on . New onset afib while in hospital. Discussed with Dr. Sellers who states patient stable and started on Eliquis today. Patient seen with family at side. Denies CP, SOB, dizziness, nausea, vomiting, chills. Objective: Vital Signs Temp 98.3 F 03/21/18 07:18 Pulse 65 03/21/18 07:18 Resp 16 03/21/18 07:50 BP 122/52 03/21/18 07:18 Pulse Ox 99 03/21/18 07:18 Intake & Output 03/20/18 03/21/18 03/21/18 18:59 06:59 18:59 Intake Total 730 400 Output Total 1190 Balance 730 -790 Intake: Oral 730 400 Output: Urine 1190 Other: Estimated Void Medium Small # Bowel Movements 0 # Voids 1 3 Laboratory Results - last 24 hr 03/20/18 03/20/18 03/20/18 11:48 11:53 11:53 WBC 13.4 H RBC 3.62 L Hgb 10.4 L Hct 31 L MCV 85 MCH 29 MCHC 34 RDW 14 Plt Count 177 MPV 8.0 Neut % (Auto) 82.1 Lymph % (Auto) 9.5 L Hand % (Auto) 7.9 H Eos % (Auto) 0.3 Baso % (Auto) 0.2 Absolute Neuts (auto) 11.0 H Absolute Lymphs (auto) 1.3 Absolute Monos (auto) 1.1 H Absolute Eos (auto) 0 Absolute Basos (auto) 0 Absolute Nucleated RBC 0 Nucleated RBC % 0 INR (Anticoag Therapy) Sodium 127 L D Potassium 4.1 Chloride 90 L Carbon Dioxide 31 Anion Gap 6 BUN 33 H Creatinine 1.54 H Est GFR ( Amer) 53.0 Est GFR (Non-Af Amer) 43.8 BUN/Creatinine Ratio 21.4 H Glucose 305 H POC Glucose (mg/dL) 316 H Calcium 8.1 L Magnesium 2.2 Total Bilirubin 0.50 AST 23 ALT 18 Alkaline Phosphatase 68 Total Protein 5.6 L Albumin 3.1 L Globulin 2.5 Albumin/Globulin Ratio 1.2 TSH 2.28 03/20/18 03/20/18 03/21/18 16:55 20:25 06:14 WBC RBC Hgb Hct MCV MCH MCHC RDW Plt Count MPV Neut % (Auto) Lymph % (Auto) Hand % (Auto) Eos % (Auto) Baso % (Auto) Absolute Neuts (auto) Absolute Lymphs (auto) Absolute Monos (auto) Absolute Eos (auto) Absolute Basos (auto) Absolute Nucleated RBC Nucleated RBC % INR (Anticoag Therapy) Sodium 130 L Potassium 4.9 Chloride 93 L Carbon Dioxide 32 Anion Gap 5 BUN 31 H Creatinine 1.19 H Est GFR ( Amer) 71.4 Est GFR (Non-Af Amer) 59.0 BUN/Creatinine Ratio 26.1 H Glucose 230 H POC Glucose (mg/dL) 246 H 284 H Calcium 8.4 L Magnesium Total Bilirubin AST ALT Alkaline Phosphatase Total Protein Albumin Globulin Albumin/Globulin Ratio TSH 03/21/18 03/21/18 03/21/18 06:18 06:18 07:39 WBC RBC Hgb 10.7 L Hct 31 L MCV MCH MCHC RDW Plt Count 219 MPV 8.4 Neut % (Auto) Lymph % (Auto) Hand % (Auto) Eos % (Auto) Baso % (Auto) Absolute Neuts (auto) Absolute Lymphs (auto) Absolute Monos (auto) Absolute Eos (auto) Absolute Basos (auto) Absolute Nucleated RBC Nucleated RBC % INR (Anticoag Therapy) 1.10 H Sodium Potassium Chloride Carbon Dioxide Anion Gap BUN Creatinine Est GFR ( Amer) Est GFR (Non-Af Amer) BUN/Creatinine Ratio Glucose POC Glucose (mg/dL) 230 H Calcium Magnesium Total Bilirubin AST ALT Alkaline Phosphatase Total Protein Albumin Globulin Albumin/Globulin Ratio TSH Assessment: General: WN, WD, sitting in chair LLE: Dressing C/D/I, dressing changed today, incision without erythema, warmth, purulent drainage or other signs of infection. Minimal tenderness to palpation at dressing. Thigh and calf soft, nontender. +DF/PF, 2+ DP pulse. SITLT. RLA: Thigh and calf soft and nontender. Plan: - WBAT - Continue PT/OT - Appreciate medicine consult for comorbid problem management - D/C today on eliquis for new onset Afib - F/U in clinic in 10-14 days for incision check
[2018-03-21] MEDS ORDERED: Apixaban* 5 MG TAB PO SCH (10:00)
[2018-03-21] MEDS: Terazosin CAP* 5 MG PO SCH (10:31)
[2018-03-21 12:28] VITALS: BP 151/48
[2018-03-21] MEDS ORDERED: Terazosin CAP* 5 MG PO SCH (21:00)
--- NOTE | 2018-03-22 01:43 | DS ---
DISCHARGE SUMMARY: DATE OF ADMISSION: 03/18/18. DATE OF DISCHARGE: 03/21/18. ATTENDING PROVIDER: Diana Cardoza MD* (DICTATED BY EMILY WRIGHT) CHIEF COMPLAINT: 1. Left hip osteoarthritis. 2. Diabetes. 3. Hypertension. DISCHARGE DIAGNOSES: 1. Status post left total hip arthroplasty. 2. Diabetes. 3. Hypertension. 4. Acute kidney injury. 5. New onset atrial fibrillation. PROCEDURE: Left total hip arthroplasty. CONSULTATIONS: Physical Therapy, Occupational Therapy, and Medicine. BRIEF HISTORY: Mr. Mcgraw is a 78-year-old gentleman with end-stage osteoarthritis of the left hip. He has failed conservative treatment and elected to undergo a left total hip arthroplasty on 03/18/[address] Cardoza. HOSPITAL COURSE: Mr. Mcgraw was admitted to [facility] on and underwent a left total hip arthroplasty. Postoperatively, he recovered on the short stay unit. On postoperative day 1, his De Oliveira catheter was removed and he was able to urinate on his own and he was able to advance to regular diet without difficulty, and pain was controlled with p.o. Percocet. He was restarted on his home medications. On postoperative day 2, it was noted that he had atrial fibrillation and he was transferred to the medical floor for monitoring. He was started on metoprolol 25 mg daily and transitioned from AFib back into sinus rhythm. Otherwise, through the rest of the stay, his labs and vital signs remained stable. He was able to weight bear as tolerated on the left lower extremity. He advanced appropriately with physical therapy and occupational therapy. DVT prophylaxis was managed in house with Lovenox and Coumadin. By postoperative day 3, he was orthopedically and medically stable for discharge home with services. PHYSICAL EXAMINATION: General: Well nourished, well developed, in no acute distress. Alert and oriented x3, sitting comfortably in a chair. Vital Signs: On day of discharge, temperature 98.3, pulse 65, respirations 16, blood pressure 122/52. Left lower extremity: Dressing is clean, dry, and intact, and incision is without erythema, warmth, purulent drainage or other signs of infection. He has minimal tenderness to palpation with the dressing. Thigh and calf are soft and nontender. He is able to dorsiflex and plantarflex his left ankle. He has 2+ DP pulses. Sensation is intact to light just distally. Right lower extremity: Benign. Calf is soft and nontender. LABORATORY DATA: On day of discharge, hemoglobin 10.4, hematocrit 31. RADIOGRAPHS: Postoperative radiographs of the left hip demonstrated a left total hip arthroplasty with satisfactory prosthesis placement. No acute bony abnormalities. DISCHARGE MEDICATIONS: 1. Apixaban 5 mg b.i.d. 2. Glucosamine and chondroitin. 3. Vitamin D 1 tablet twice daily. 4. NovoLog 10 units subcutaneously. 5. Lantus 30 units subcutaneously every 12 hours. 6. Lisinopril 20 mg. 7. Metoprolol XL 25 mg daily. 8. Percocet 5/325 one to two tabs every 4 to 6 hours as needed for pain. 9. Simvastatin 80 mg. 10. Terazosin 5 mg. 11. Triamterene/hydrochlorothiazide 37.5/25 mg one tab daily at noon. CONDITION ON DISCHARGE: Stable. DISCHARGE INSTRUCTIONS: Mr. Mcgraw is a 78-year-old male postoperative day 3 status post left total hip arthroplasty, which is complicated by new onset atrial fibrillation. He is orthopedically and medically stable for discharge home with services. Labs and vital signs today are stable. He will restart his home medications. He will also start taking metoprolol 25 mg daily as well as use Eliquis for DVT and for AFib to prevent DVT prophylaxis. He will have visiting nurses changed dressing twice a week. He will also have home PT twice a week. He will take Percocet for pain control. He will use Colace 2 to to 3 times a day for constipation. He will follow with Dr. Cardoza in 10 to 14 days for incision check and suture removal. He is instructed to go immediately to the ER, should he develop chest pain or shortness of breath, and he will call our office if he develops fever, increasing pain or redness. EMILY WRIGHT [id number]/CPS #: [id number] MTDD
--- NOTE | 2018-03-22 04:46 | DS ---
CC: Zohaib Holden DO; Dr. Cardoza DISCHARGE SUMMARY: ADDENDUM: DATE OF ADMISSION: 03/18/18 DATE OF DISCHARGE: 03/21/18 PRIMARY CARE PROVIDER: Zohaib Holden DO at the [facility]. ORTHOPEDIST: Dr. Cardoza. HOSPITAL COURSE: As described in my consultation, the patient was admitted for an elective left tota l hip arthroplasty and was doing well on the postop. The plan also him to be discharged home on 01/31, but he was noted to be hypotensive and found to have an irregular heartbeat. For that reason, his discharge was canceled and an EKG was done revealing atrial fibrillation with a heart rate of 102 . The case was discussed with Cardiology (Dr. Umanzor) and the impression was the patient could sharma ve atrial fibrillation. The EKG was read officially by another water supervisor, Dr. Maldonado, and his imp ression was the patient has sinus tachycardia with very long DE intervals and probable Wenckebach bes t seen in lead V1. While on telemetry, the patient had other episodes of irregular heartbeats that w ere interpreted as atrial fibrillation. His calculated CHADS2-VASc score is 4 (age, hypertension, di abetes) predicting a risk of stroke of 4.8% a year. The patient was already on anticoagulation with Lovenox and warfarin for DVT prophylaxis after his arthroplasty; but after reviewing risks and benefi ts, the patient and family elected one of the new agents as they are equal or even superior to warfar in with a lower risk of bleed. Decision was made to start the patient on Eliquis. I also discussed the case with Dr. Umanzor and his recommendation was for low dose beta- jennifer. In order to have enough blood pressure to add metoprolol, the patient's lisinopril was reduced to 20 mg p.o. daily. W e changed his Dyazide to noon and his terazosin to bedtime to be able to give him 25 mg of metoprolol succinate a day. The patient converted to normal sinus rhythm and he was feeling well on the day of discharge and anxi ous to go home with no complaints. The patient had a transthoracic echocardiogram that was a limited study due to the patient's body hab itus, but there was mild to moderate concentric left ventricular hypertrophy with ejection fraction o f 60% to 65%. No significant valvular disease. The patient is medically stable to be discharged home today. The plan is for him to follow up with h is primary care provider and be referred to a water supervisor within the [place] system. MEDICATION LIST: As follows: 1. Eliquis 5 mg p.o. b.i.d. 2. Glucosamine chondroitin 1 capsule p.o. b.i.d. 3. Lantus 30 units subcutaneously daily. 4. Insulin aspart 6 units before breakfast, 10 units before lunch and dinner. 5. Lisinopril was reduced to 20 mg p.o. daily. 6. Metoprolol succinate 25 mg p.o. daily. 7. Oxycodone/acetaminophen 5/325 mg 2 tabs p.o. q.4 hours p.r.n. pain, MDD 8. 8. Simvastatin 80 mg p.o. 5 p.m. 9. Terazosin 5 mg p.o. at bedtime. 10. Dyazide 1 capsule p.o. daily at noon. Please keep in mind that this is a summarized version of the [facility]. If you need more information, please feel free to call me at [phone] or please obtain t he full medical records. For more details about his admission, I refer you to his discharge summary from Dr. Cardoza from 03/20/18. [id number]/[facility] #: [id number]
== END 2018-03-21 14:14 | disposition home or self-care (01) | DRG 470 ==
LOC: AA 10:25 → SSU 18:54 → MEDTELE 03-20 13:37
PROVIDERS: ADMIT Orthopaedic Surgery Adult Reconstructive Orthopaedic Surgery; ATTEND Orthopaedic Surgery Adult Reconstructive Orthopaedic Surgery
PROC: 0SRB04A Replacement of Left Hip Joint with Ceramic on Polyethylene Synthetic Substitute, Uncemented, Open Approach (ICD-10-PCS; principal; 2018-03-18 13:00)
DX: M16.12 Unilateral primary osteoarthritis, left hip (principal); N17.9 Acute kidney failure, unspecified; D62 Acute posthemorrhagic anemia; I10 Essential (primary) hypertension; E11.3599 Type 2 diabetes mellitus with proliferative diabetic retinopathy without macular edema, unspecified eye; E78.00 Pure hypercholesterolemia, unspecified; E66.9 Obesity, unspecified; H91.90 Unspecified hearing loss, unspecified ear; I95.9 Hypotension, unspecified; Z96.1 Presence of intraocular lens; I48.91 Unspecified atrial fibrillation; Z98.41 Cataract extraction status, right eye; Z88.0 Allergy status to penicillin; Z82.49 Family history of ischemic heart disease and other diseases of the circulatory system; Z90.49 Acquired absence of other specified parts of digestive tract; Z80.0 Family history of malignant neoplasm of digestive organs; Z82.0 Family history of epilepsy and other diseases of the nervous system; Z68.33 Body mass index [BMI] 33.0-33.9, adult; Z82.3 Family history of stroke; Z72.89 Other problems related to lifestyle; Z79.4 Long term (current) use of insulin; Z79.01 Long term (current) use of anticoagulants
CPT/HCPCS: 36415; 72170; 80048; 80053; 83735; 84443; 85014; 85018; 85025; 85049; 85610; 88304; 88311; 93005; 93306; A9270-GY; C1713; C1776; G8978-GP-CL; G8978-GP-CM; G8979-GP-CK; G8979-GP-CL; G8987-GO-CI; G8988-GO-CI; G8989-GO-CI; J1650; J2250; J2704; J2795; J3010